=== PATIENT | male | born 1930 | race Caucasian/White ===

== ENCOUNTER 2020-04-07 10:25 | Emergency (ER) | payer OTHER ==
[~2020-04-07] VITALS: Ht 170.2 cm; Wt 65.8 kg
[2020-04-07 10:47] LABS: HEMATOCRIT 38.7 % (42.0-52.0); HEMOGLOBIN 13.2 gm/dL (14.0-18.0); MCH 33.8 pg (26.0-34.0); MCHC 34.1 g/dL (28.0-37.0); MCV 99.1 fL (80.0-100.0); RBC 3.91 mil/uL (4.50-6.00); RDW 12.7 % (10.5-14.5); WBC 7.5 thou/uL (4.0-11.0)
[2020-04-07 10:59] LABS: ANION GAP 7 mmol/L (7-16); BUN 12 mg/dL (7-18); CALCIUM 8.5 mg/dL (8.5-10.1); CHLORIDE 97 mmol/L (98-107); CO2 28 mmol/L (21-32); GLUCOSE 150 mg/dL (74-106); SODIUM 132 mmol/L (136-145)
[2020-04-07 11:09] LABS: TROPONIN-I <0.06 ng/mL (<0.06)
[2020-04-07 11:28] LABS: APTT 26.3 Seconds (24.5-32.8); PROTIME 10.7 Seconds (9.3-11.4)
[2020-04-07 12:31] LABS: URINE BILIRUBIN NEGATIVE (Negative); URINE BLOOD TRACE (Negative); URINE CLARITY CLEAR; URINE COLOR YELLOW; URINE GLUCOSE-RANDOM* NEGATIVE (Negative); URINE KETONES NEGATIVE (Negative); URINE LEUKOCYTES-REFLEX NEGATIVE (Negative); URINE NITRITE-REFLEX NEGATIVE (Negative); URINE PROTEIN (DIPSTICK) 1+ (Negative); URINE UROBILINOGEN 0.2 E.U./dl (0.2-1.0)
--- NOTE | 2020-04-07 12:45 | EKG ---
[facility] [place] [address] ELECTROCARDIOGRAM REPORT Name: ASTRID LOPEZ Room #: REG M..#: [id number] Admission: 04/07/20 Attend Phys: Discharge: Date of : [birth year] Report #: [id number] THIS REPORT FOR: cc: Jean-Pierre Segovia Mohammad K. 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 : 1930 Requested By: Karlo Ramires Order Number: [id number] MD: Massimo Justice Measurements Intervals [place] Rate: 53 P: 44 MD: 190 QRS: 30 QRSD: 106 T: -9 QT: 469 QTc: 441 Interpretive Statements Sinus bradycardia Anterior infarct, old Borderline T abnormalities, inferior leads No previous ECG available for comparison Electronically Signed On 04-07-2020 12:45:18 CDT by Massimo Justice [email or web address] <ELECTRONICALLY SIGNED> By: Massimo Justice MD, FACC 04/07/20 1245 1041 1041 Massimo Justice MD, [facility] /EPI
[2020-04-07 13:06] LABS: URINE RBC 0-2 Rare /HPF (0-2); URINE WBC-REFLEX 0-5 Rare /HPF (0-5)
[2020-04-07 13:07] LABS: CASTS None Seen /LPF (None Seen); CRYSTALS None Seen /LPF (None Seen); SQUAMOUS None Seen /LPF (0-3)
[2020-04-07 13:08] LABS: BACTERIA-REFLEX None Seen /HPF (None Seen)
--- NOTE | 2020-04-07 13:46 | EKG ---
[facility] [place] [address] ELECTROCARDIOGRAM REPORT Name: ASTRID LOPEZ Room #: REG M..#: [id number] Admission: 04/07/20 Attend Phys: Discharge: Date of : [birth year] Report #: [id number] THIS REPORT FOR: cc: Jean-Pierre Segovia Mohammad K. DO Santiago, Patrick MD [facility] THIS REPORT FOR: //name// 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: [facility] : 1930 Requested By: Karlo Ramires Order Number: [id number] MD: Ernesto Luz Measurements Intervals [place] Rate: 58 P: 25 MA: 191 QRS: 12 QRSD: 108 T: 5 QT: 447 QTc: 440 Interpretive Statements Sinus rhythm Anterior infarct, old Borderline T abnormalities, inferior leads Compared to ECG 04/07/2020 10:41:17 Sinus bradycardia no longer present Myocardial infarct finding still present T-wave abnormality still present Electronically Signed On 04-07-2020 13:46:17 CDT by Ernesto Luz [email or web address] <ELECTRONICALLY SIGNED> By: Ernesto Luz MD, FAC 04/07/20 1346 134 41 Ernesto Luz MD, [facility] /EPI
[2020-04-07] MEDS ORDERED: NORVASC5 MG PO (14:33)
[2020-04-07] MEDS ORDERED: CLOPIDOGREL75 MG PO (14:34)
[2020-04-07] MEDS ORDERED: METOPROLOL SUCC50 MG PO (14:34)
[2020-04-07] MEDS ORDERED: SINGULAIR 10 MG10 M1 PO (14:34)
[2020-04-07] MEDS ORDERED: LIPITOR 40 MG T40 M1 PO (14:35)
[2020-04-07] MEDS ORDERED: PROTONIX40 M2 PO (14:35)
[2020-04-07 14:39] VITALS: BP 154/55
== END 2020-04-07 14:39 | disposition home or self-care (01) ==
LOC: ER 10:25
PROVIDERS: Emergency Medicine
DX: R55 Syncope and collapse (principal); R11.10 Vomiting, unspecified; Z87.891 Personal history of nicotine dependence; Z79.899 Other long term (current) drug therapy

== ENCOUNTER 2020-06-01 09:07 | Emergency (ER) | payer OTHER ==
[~2020-06-01] VITALS: Ht 170.2 cm; Wt 68.0 kg
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
[~2020-06-01 09:07] MED LIST: CLOPIDOGREL75 MG PO; LIPITOR 40 MG T40 M1 PO; METOPROLOL SUCC50 MG PO; NORVASC5 MG PO; PROTONIX40 M2 PO; SINGULAIR 10 MG10 M1 PO
[2020-06-01] MEDS ORDERED: TYLENOL EXTRA500 MG PO (09:56)
[2020-06-01] MEDS ORDERED: FOSAMAX 70 MG T70 MG PO ×2 (09:57→09:58)
[2020-06-01] MEDS ORDERED: PLAVIX 75 MG TA75 MG PO (09:58)
[2020-06-01] MEDS ORDERED: ASPIR 8181 MG PO (09:58)
[2020-06-01] MEDS ORDERED: MESTINON60 MG PO (09:59)
[2020-06-01] MEDS ORDERED: CENTRUM SILVER1 EAC4 PO (10:00)
[2020-06-01 10:21] LABS: HEMATOCRIT 37.2 % (42.0-52.0); HEMOGLOBIN 12.8 gm/dL (14.0-18.0); MCH 34.3 pg (26.0-34.0); MCHC 34.3 g/dL (28.0-37.0); MCV 99.8 fL (80.0-100.0); RBC 3.73 mil/uL (4.50-6.00); WBC 10.8 thou/uL (4.0-11.0)
[2020-06-01 10:33] LABS: ANION GAP 4 mmol/L (7-16); BUN 15 mg/dL (7-18); CALCIUM 8.9 mg/dL (8.5-10.1); CHLORIDE 97 mmol/L (98-107); CO2 30 mmol/L (21-32); CREATININE 1.1 mg/dL (0.7-1.3); GLUCOSE 123 mg/dL (74-106); POTASSIUM 4.1 mmol/L (3.5-5.1); SODIUM 131 mmol/L (136-145)
[2020-06-01 10:43] LABS: MAGNESIUM 1.9 mg/dL (1.8-2.4); TROPONIN-I <0.06 ng/mL (<0.06)
--- NOTE | 2020-06-01 10:56 | EKG ---
[facility] [place] [address] ELECTROCARDIOGRAM REPORT Name: ASTRID LOPEZ Room #: REG M..#: [id number] Admission: 06/01/20 Attend Phys: Discharge: Date of : [birth year] Report #: [id number] THIS REPORT FOR: cc: Jean-Pierre Segovia Mohammad K. 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 : 1930 Requested By: Arnoldo Brooks Order Number: [id number] MD: Ernesto Luz Measurements Intervals [place] Rate: 61 P: 62 WA: 220 QRS: 21 QRSD: 115 T: 21 QT: 470 QTc: 474 Interpretive Statements Sinus rhythm Borderline prolonged WA interval Probable left atrial enlargement Nonspecific intraventricular conduction delay Probable anteroseptal infarct, old Compared to ECG 04/07/2020 13:42:40 Intraventricular conduction delay now present T-wave abnormality no longer present Myocardial infarct finding still present Electronically Signed On 06-01-2020 10:56:31 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
[2020-06-01 12:32] VITALS: BP 110/56
== END 2020-06-01 12:34 | disposition home or self-care (01) ==
LOC: ER 09:07
PROVIDERS: Emergency Medicine
DX: R56.9 Unspecified convulsions (principal); I10 Essential (primary) hypertension; K21.9 Gastro-esophageal reflux disease without esophagitis; Z79.899 Other long term (current) drug therapy; Z79.01 Long term (current) use of anticoagulants; Z87.891 Personal history of nicotine dependence